=== PATIENT | female | born 1975 | race Caucasian/White ===

== ENCOUNTER 2023-04-19 15:20 | Emergency (ER) | payer SELFPAY ==
[2023-04-19 15:37] VITALS: PULSE 94; RESP 22; O2SAT 95; BMI 29.2
--- NOTE | 2023-04-19 15:44 | XRR_ITS ---
PROCEDURE INFORMATION: Exam: XR Right Ankle Exam date and time: 04/19/2023 4:00 PM Age: 48 years old Clinical indication: Injury or trauma; Fall; Blunt trauma; Ankle; Right; Additional info: Pain after fall TECHNIQUE: Imaging protocol: Radiologic exam of the right ankle. Views: 3 or more views. COMPARISON: No relevant prior studies available. FINDINGS: Bones/joints: See Soft tissues finding. Soft tissues: Mild lateral soft tissue swelling. No fracture, dislocation or subluxation. XR/XR ankle RT min 3V* [id number] IMPRESSION: No fracture. Lateral soft tissue swelling.
--- NOTE | 2023-04-19 15:51 | ED_ITS ---
Documented by User: Deyanira Roman PA-C 04/19/23 15:56 HPI - Extremity Problem General: Chief complaint: Extremity Injury, Lower Stated complaint: Right ankle injury/fall, dizzy,weakness, n/v Time Seen by Provider: 04/19/23 15:44 Source: patient and family Mode of arrival: ambulatory Limitations: no limitations History of Present Illness: 48-year-old female presents to the ER today for right foot pain, nausea, vomiting, diarrhea x12 hours. Patient reports she was getting in the hot tub last night when she slipped. She reports she felt her right foot go in different directions and hit the bottom of the pool. Patient reports since then she is been unable to bear weight on the right foot without significant pain due to it feeling unstable. Denies any prior history of a foot fracture. Patient reports a history of lupus and a stroke but no other major medical problems. Patient does smoke marijuana and reports her last marijuana use was just prior to arrival. Patient reports last night she started vomiting and has vomited all night long. She reports she is vomiting and black bile. Patient reports she has epigastric abdominal pain and it radiates across the upper abdomen. She has also had watery bowel movements since last night. Denies any fever or chills. Denies any known sick contacts. Patient has not take anything for her symptoms at this time. Review of Systems General: Reports: 10 or more systems reviewed and unremarkable except in HPI and below Physical Exam Const: COMMON NORMALS: average body habitus, patient oriented x3 and alert OTHER: pain out of proportion to exam HENMT: COMMON NORMALS: normocephalic, atraumatic, external ears normal, Normal external nose present and moist oral mucous membranes HEAD & SCALP: norm ocephalic and atraumatic NOSE: Normal external nose present EXTERNAL EAR: Yes external ears normal Lymph: LYMPHATIC: no lymphadenopathy noted Resp: COMMON NORMALS: normal respiratory effort, No retractions and clear to auscultation bilaterally AUSCULTATION: clear to auscultation bilaterally Cardio: COMMON NORMALS: regular rate, regular rhythm and No murmurs present (Cardio) RATE: regular rate RHYTHM: regular rhythm GI: OTHER: Mild epigastric tenderness noted and diffuse tenderness across the superior portion of the abdomen, negative Garvey sign. No right lower quadrant or left lower quadrant tenderness noted on exam, nondistended, normo active bowel sounds. Back/Pelvis: COMMON NORMALS: no thoracic nor lumbar tenderness and thoraco- lumbar ROM normal Extremity: NARRATIVE EXTREMITY EXAM: Patient has minimal swelling over the right lateral malleolus and navicular bone medially. There is some mild erythema over the navicular bone. Patient reports this is more swollen than normal. No other deformities noted. None tender to palpation over that area. Neuro: COMMON NORMALS: patient oriented x3 SENSORIUM/ORIENTATION: Yes alert Psych: OTHER: Patient is having difficulty making eye contact, she is in constant motion in the bed and having difficulty lying still. Skin: COMMON NORMALS: no rashes or lesions noted and no wounds GENERAL SKIN EXAM: no rashes or lesions noted Course ED course: Presents for nausea and vomiting along with right ankle pain. We will get lab work at this time in addition to an x-ray of the right foot/ankle. Patient's vitals are stable at this time. We may decide to do imaging pending lab results. We will also do a bolus of fluids with some Zofran to help with nausea. Vital Signs: Vital signs: Vital Signs Pulse Rate 76 04/19/23 17:00 Respiratory Rate 22 H 04/19/23 15:37 Blood Pressure 158/94 04/19/23 17:00 Pulse Oximetry 98 04/19/23 17:00 Oxygen Delivery Me thod Room Air 04/19/23 17:00 MDM - Extremity (Nontraumatic) Lab Data 04/19/23 15:55 04/19/23 15:55 Radiology Impressions Ankle X-Ray 04/19/23 15:44 IMPRESSION: No fracture. Lateral soft tissue swelling. Abdomen/Pelvis CT 04/19/23 16:37 IMPRESSION: No acute findings. COMMENTS: Consistent with the [employer]'s Incidental Findings Committee white paper (J Am Nolvia Radiol 2018): Any incidental renal lesion less than 1 cm or classified as too small to characterize, or any incidental cystic renal lesion characterized as simple-appearing, is likely benign. No follow-up imaging is recommended for these lesions per consensus recommendations based on imaging criteria. Laboratory Results WBC 8.8 10^3/uL (4.0-10.0) 04/19/23 15:55 RBC 5.09 10^6/uL (4.1-5.3) 04/19/23 15:55 Hgb 14.7 g/dL (11.5-15.3) 04/19/23 15:55 Hct 43.2 % (37.0-47.0) 04/19/23 15:55 MCV 84.9 fl (81-99) 04/19/23 15:55 MCH 28.9 pg (28.0-34.0) 04/19/23 15:55 MCHC 34.0 g/dL (30.0-36.0) 04/19/23 15:55 RDW 13.2 % (12.1-15.1) 04/19/23 15:55 Plt Count 199 10^3/cmm (130-400) 04/19/23 15:55 MPV 12.3 fL (7.4-10.4) H 04/19/23 15:55 Neut % (Auto) 59.4 % 04/19/23 15:55 Lymph % (Auto) 32.8 % 04/19/23 15:55 [place] % (Auto) 5.7 % 04/19/23 15:55 Eos % (Auto) 1.5 % 04/19/23 15:55 Baso % (Auto) 0.5 % 04/19/23 15:55 Neut # (Auto) 5.21 10^3/uL (1.8-7.7) 04/19/23 15:55 Lymph # (Auto) 2.9 10^3/uL (0.8-4.8) 04/19/23 15:55 [place] # (Auto) 0.5 10^3/uL (0.2-0.9) 04/19/23 15:55 Eos # (Auto) 0.1 10^3/uL (0.0-0.8) 04/19/23 15:55 Baso # (Auto) 0.0 10^3/uL (0.0-0.1) 04/19/23 15:55 Nucleated RBC % (auto) 0 % 04/19/23 15:55 Nucleated RBCs # 0.0 /100WBC 04/19/23 15:55 Sodium 138 mmol/L (136-145) 04/19/23 15:55 Potassium 3.4 mmol/L (3.5-5.1) L 04/19/23 15:55 Chloride 102 mmol/L (98-107) 04/19/23 15:55 Carbon Dioxide 24 mmol/L (22-29) 04/19/23 15:55 Anion Gap 15.4 (5-19) 04/19/23 15:55 BUN 9 mg/dL (6-20) 04/19/23 15:55 Creatinine 0.9 mg/dL (0.5-0.9) 04/19/23 15:55 GFR Calculation 66.5 mL/min (90-130) L 04/19/23 15:55 Glucose 109 mg/dL (65-115) 04/19/23 15:55 Calculated Osmolality 285 mOsm/kg (285-295) 04/19/23 15:55 Calcium 9.4 mg/dL (8.5-10.5) 04/19/23 15:55 Total Bilirubin 0.4 mg/dL (0.15-1.2) 04/19/23 15:55 AST 22 U/L (0-32) 04/19/23 15:55 ALT 16 U/L (0-33) 04/19/23 15:55 Alkaline Phosphatase 91 U/L (35-105) 04/19/23 15:55 Total Protein 7.2 g/dL (6.6-8.7) 04/19/23 15:55 Albumin 4.7 g/dL (3.5-5.2) 04/19/23 15:55 Globulin 2.5 g/dL (1.3-4.6) 04/19/23 15:55 Lipase 48 U/L (13-60) 04/19/23 15:55 Urine Color Colorless (Yellow) 04/19/23 17:34 Urine Appearance Clear (CLEAR) 04/19/23 17:34 Urine pH 6.5 (5-7) 04/19/23 17:34 Ur Specific [place] 1.005 (1.005-1.030) 04/19/23 17:34 Urine Protein Neg (Negative) 04/19/23 17:34 Urine Glucose (UA) Norm (Normal) 04/19/23 17:34 Urine Ketones Negative (Negative) 04/19/23 17:34 Urine Blood Neg (Negative) 04/19/23 17:34 Urine Nitrate Negative (Negative) 04/19/23 17:34 Urine Bilirubin Neg (Negative) 04/19/23 17:34 Urine Urobilinogen Norm mg/dL (Negative) 04/19/23 17:34 Ur Leukocyte Esterase Negative (Negative) 04/19/23 17:34 Urine Opiates Screen Negative ng/mL (Negative) 04/19/23 17:34 Ur Barbiturates Screen Negative ng/mL (Negative) 04/19/23 17:34 Ur Phencyclidine Scrn Negative ng/mL (Negative) 04/19/23 17:34 Ur Amphetamines Screen Positive ng/mL (Negative) H 04/19/23 17:34 U Benzodiazepines Scrn Negative ng/mL (Negative) 04/19/23 17:34 Urine Cocaine Screen Negative ng/mL (Negative) 04/19/23 17:34 U Marijuana (THC) Screen Positive ng/mL (Negative) H 04/19/23 17:34 Critical Care Time Critical Care Time: Critical Care Time: No Discharge Plan Discharge Patient Disposition: Home Clinical Impression: Dizziness, Ankle sprain and strain Condition: Stable Prescriptions: New meclizine 25 mg tablet 25 mg PO TID PRN (Reason: dizziness and nausea) Qty: 30 0RF Discharge Orders: Discharge ED (Routine); Ordered 04/19/23 Ordered By: Lawrence Cunningham Discharge Diet: Usual diet Discharge Activity: Increase activity as tolerated Patient Instructions: Ankle Sprain (ED), Dizziness (ED) Activity Restrictions/Additional Instructions: Home and rest. Drink plenty of water and fluids. Use meclizine to help with dizziness and nausea. Use acetaminophen and ibuprofen to help with pain of the ankle. Use elastic support and crutches until he can bear weight comfortably. Follow-up with primary care or specialist for further treatment and evaluation. Sign Out Sign Out Data: Patient Sign Out occurred on 04/19/23 at 17:03. Patient's care was discussed, and care was transferred from Deyanira Roman PA-C to Lawrence Cunningham. 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 Fwd Documented by User: [email or web address] Rodriguez 04/19/23 18:14 HPI - Extremity Problem General: Chief complaint: Extremity Injury, Lower Stated complaint: Right ankle injury/fall, dizzy,weakness, n/v Time Seen by Provider: 04/19/23 15:44 Course Vital Signs: Vital signs: Vital Signs Pulse Rate 76 04/19/23 17:00 Respiratory Rate 22 H 04/19/23 15:37 Blood Pressure 158/94 04/19/23 17:00 Pulse Oximetry 98 04/19/23 17:00 Oxygen Delivery Me thod Room Air 04/19/23 17:00 MDM - Extremity (Nontraumatic) Medical Decision Making I received this patient from Deyanira Roman, physician commercial real estate assistant. At the time of acceptance of patient patient was awaiting CT results. Patient had made complaints of dizziness with nausea vomiting diarrhea. Patient also made complaints of injury to the right ankle. X-rays of the ankle noted no fracture or swelling. Laboratories at the time showed no significant abnormalities. Outstanding labs of the urinalysis and drug screen. Differential diagnoses includes but not limited to sprain, fracture, dehydration, gastroenteritis. CT of the abdomen and pelvis noted no acute surgical abdomen. Urine drug screen w as positive for amphetamines and marijuana. Patient was recommended to use meclizine for nausea and dizziness. Patient was recommended to use a elastic bandage and crutches for support. Lab Data 04/19/23 15:55 04/19/23 15:55 Radiology Impressions Ankle X-Ray 04/19/23 15:44 IMPRESSION: No fracture. Lateral soft tissue swelling. Abdomen/Pelvis CT 04/19/23 16:37 IMPRESSION: No acute findings. COMMENTS: Consistent with the [employer]'s Incidental Findings Committee white paper (J Am Nolvia Radiol 2018): Any incidental renal lesion less than 1 cm or classified as too small to characterize, or any incidental cystic renal lesion characterized as simple-appearing, is likely benign. No follow-up imaging is recommended for these lesions per consensus recommendations based on imaging criteria. Laboratory Results WBC 8.8 10^3/uL (4.0-10.0) 04/19/23 15:55 RBC 5.09 10^6/uL (4.1-5.3) 04/19/23 15:55 Hgb 14.7 g/dL (11.5-15.3) 04/19/23 15:55 Hct 43.2 % (37.0-47.0) 04/19/23 15:55 MCV 84.9 fl (81-99) 04/19/23 15:55 MCH 28.9 pg (28.0-34.0) 04/19/23 15:55 MCHC 34.0 g/dL (30.0-36.0) 04/19/23 15:55 RDW 13.2 % (12.1-15.1) 04/19/23 15:55 Plt Count 199 10^3/cmm (130-400) 04/19/23 15:55 MPV 12.3 fL (7.4-10.4) H 04/19/23 15:55 Neut % (Auto) 59.4 % 04/19/23 15:55 Lymph % (Auto) 32.8 % 04/19/23 15:55 [place] % (Auto) 5.7 % 04/19/23 15:55 Eos % (Auto) 1.5 % 04/19/23 15:55 Baso % (Auto) 0.5 % 04/19/23 15:55 Neut # (Auto) 5.21 10^3/uL (1.8-7.7) 04/19/23 15:55 Lymph # (Auto) 2.9 10^3/uL (0.8-4.8) 04/19/23 15:55 [place] # (Auto) 0.5 10^3/uL (0.2-0.9) 04/19/23 15:55 Eos # (Auto) 0.1 10^3/uL (0.0-0.8) 04/19/23 15:55 Baso # (Auto) 0.0 10^3/uL (0.0-0.1) 04/19/23 15:55 Nucleated RBC % (auto) 0 % 04/19/23 15:55 Nucleated RBCs # 0.0 /100WBC 04/19/23 15:55 Sodium 138 mmol/L (136-145) 04/19/23 15:55 Potassium 3.4 mmol/L (3.5-5.1) L 04/19/23 15:55 Chloride 102 mmol/L (98-107) 04/19/23 15:55 Carbon Dioxide 24 mmol/L (22-29) 04/19/23 15:55 Anion Gap 15.4 (5-19) 04/19/23 15:55 BUN 9 mg/dL (6-20) 04/19/23 15:55 Creatinine 0.9 mg/dL (0.5-0.9) 04/19/23 15:55 GFR Calculation 66.5 mL/min (90-130) L 04/19/23 15:55 Glucose 109 mg/dL (65-115) 04/19/23 15:55 Calculated Osmolality 285 mOsm/kg (285-295) 04/19/23 15:55 Calcium 9.4 mg/dL (8.5-10.5) 04/19/23 15:55 Total Bilirubin 0.4 mg/dL (0.15-1.2) 04/19/23 15:55 AST 22 U/L (0-32) 04/19/23 15:55 ALT 16 U/L (0-33) 04/19/23 15:55 Alkaline Phosphatase 91 U/L (35-105) 04/19/23 15:55 Total Protein 7.2 g/dL (6.6-8.7) 04/19/23 15:55 Albumin 4.7 g/dL (3.5-5.2) 04/19/23 15:55 Globulin 2.5 g/dL (1.3-4.6) 04/19/23 15:55 Lipase 48 U/L (13-60) 04/19/23 15:55 Urine Color Colorless (Yellow) 04/19/23 17:34 Urine Appearance Clear (CLEAR) 04/19/23 17:34 Urine pH 6.5 (5-7) 04/19/23 17:34 Ur Specific [place] 1.005 (1.005-1.030) 04/19/23 17:34 Urine Protein Neg (Negative) 04/19/23 17:34 Urine Glucose (UA) Norm (Normal) 04/19/23 17:34 Urine Ketones Negative (Negative) 04/19/23 17:34 Urine Blood Neg (Negative) 04/19/23 17:34 Urine Nitrate Negative (Negative) 04/19/23 17:34 Urine Bilirubin Neg (Negative) 04/19/23 17:34 Urine Urobilinogen Norm mg/dL (Negative) 04/19/23 17:34 Ur Leukocyte Esterase Negative (Negative) 04/19/23 17:34 Urine Opiates Screen Negative ng/mL (Negative) 04/19/23 17:34 Ur Barbiturates Screen Negative ng/mL (Negative) 04/19/23 17:34 Ur Phencyclidine Scrn Negative ng/mL (Negative) 04/19/23 17:34 Ur Amphetamines Screen Positive ng/mL (Negative) H 04/19/23 17:34 U Benzodiazepines Scrn Negative ng/mL (Negative) 04/19/23 17:34 Urine Cocaine Screen Negative ng/mL (Negative) 04/19/23 17:34 U Marijuana (THC) Screen Positive ng/mL (Negative) H 04/19/23 17:34 Discharge Plan Discharge Patient Disposition: Home Clinical Impression: Dizziness, Ankle sprain and strain Condition: Stable Prescriptions: New meclizine 25 mg tablet 25 mg PO TID PRN (Reason: dizziness and nausea) Qty: 30 0RF Discharge Orders: Discharge ED (Routine); Ordered 04/19/23 Ordered By: Lawrence Cunningham Discharge Diet: Usual diet Discharge Activity: Increase activity as tolerated Patient Instructions: Ankle Sprain (ED), Dizziness (ED) Activity Restrictions/Additional Instructions: Home and rest. Drink plenty of water and fluids. Use meclizine to help with dizziness and nausea. Use acetaminophen and ibuprofen to help with pain of the ankle. Use elastic support and crutches until he can bear weight comfortably. Follow-up with primary care or specialist for further treatment and evaluation. Sign Out Sign Out Data: Patient Sign Out occurred on 04/19/23 at 17:03. Patient's care was discussed, and care was transferred from Deyanira Roman PA-C to Lawrence Cunningham. 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 Fwd Documented by User: Slim Anne DO 04/20/23 05:43 HPI - Extremity Problem General: Chief complaint: Extremity Injury, Lower Stated complaint: Right ankle injury/fall, dizzy,weakness, n/v Time Seen by Provider: 04/19/23 15:44 Course Vital Signs: Vital signs: Vital Signs Pulse Rate 76 04/19/23 17:00 Respiratory Rate 22 H 04/19/23 15:37 Blood Pressure 158/94 04/19/23 17:00 Pulse Oximetry 98 04/19/23 17:00 Oxygen Delivery Me thod Room Air 04/19/23 17:00 MDM - Extremity (Nontraumatic) Medical Decision Making I received this patient from Deyanira Roman, physician commercial real estate assistant. At the time of acceptance of patient patient was awaiting CT results. Patient had made complaints of dizziness with nausea vomiting diarrhea. Patient also made complaints of injury to the right ankle. X-rays of the ankle noted no fracture or swelling. Laboratories at the time showed no significant abnormalities. Outstanding labs of the urinalysis and drug screen. Differential diagnoses includes but not limited to sprain, fracture, dehydration, gastroenteritis. CT of the abdomen and pelvis noted no acute surgical abdomen. Urine drug screen was positive for amphetamines and marijuana. Patient was recommended to use meclizine for nausea and dizziness. Patient was recommended to use a elastic bandage and crutches for support. Chart reviewed. Agree with assessment and plan. Lab Data 04/19/23 15:55 04/19/23 15:55 Radiology Impressions Ankle X-Ray 04/19/23 15:44 IMPRESSION: No fracture. Lateral soft tissue swelling. Abdomen/Pelvis CT 04/19/23 16:37 IMPRESSION: No acute findings. COMMENTS: Consistent with the [employer]'s Incidental Findings Committee white paper (J Am Nolvia Radiol 2018): Any incidental renal lesion less than 1 cm or classified as too small to characterize, or any incidental cystic renal lesion characterized as simple-appearing, is likely benign. No follow-up imaging is recommended for these lesions per consensus recommendations based on imaging criteria. Laboratory Results WBC 8.8 10^3/uL (4.0-10.0) 04/19/23 15:55 RBC 5.09 10^6/uL (4.1-5.3) 04/19/23 15:55 Hgb 14.7 g/dL (11.5-15.3) 04/19/23 15:55 Hct 43.2 % (37.0-47.0) 04/19/23 15:55 MCV 84.9 fl (81-99) 04/19/23 15:55 MCH 28.9 pg (28.0-34.0) 04/19/23 15:55 MCHC 34.0 g/dL (30.0-36.0) 04/19/23 15:55 RDW 13.2 % (12.1-15.1) 04/19/23 15:55 Plt Count 199 10^3/cmm (130-400) 04/19/23 15:55 MPV 12.3 fL (7.4-10.4) H 04/19/23 15:55 Neut % (Auto) 59.4 % 04/19/23 15:55 Lymph % (Auto) 32.8 % 04/19/23 15:55 [place] % (Auto) 5.7 % 04/19/23 15:55 Eos % (Auto) 1.5 % 04/19/23 15:55 Baso % (Auto) 0.5 % 04/19/23 15:55 Neut # (Auto) 5.21 10^3/uL (1.8-7.7) 04/19/23 15:55 Lymph # (Auto) 2.9 10^3/uL (0.8-4.8) 04/19/23 15:55 [place] # (Auto) 0.5 10^3/uL (0.2-0.9) 04/19/23 15:55 Eos # (Auto) 0.1 10^3/uL (0.0-0.8) 04/19/23 15:55 Baso # (Auto) 0.0 10^3/uL (0.0-0.1) 04/19/23 15:55 Nucleated RBC % (auto) 0 % 04/19/23 15:55 Nucleated RBCs # 0.0 /100WBC 04/19/23 15:55 Sodium 138 mmol/L (136-145) 04/19/23 15:55 Potassium 3.4 mmol/L (3.5-5.1) L 04/19/23 15:55 Chloride 102 mmol/L (98-107) 04/19/23 15:55 Carbon Dioxide 24 mmol/L (22-29) 04/19/23 15:55 Anion Gap 15.4 (5-19) 04/19/23 15:55 BUN 9 mg/dL (6-20) 04/19/23 15:55 Creatinine 0.9 mg/dL (0.5-0.9) 04/19/23 15:55 GFR Calculation 66.5 mL/min (90-130) L 04/19/23 15:55 Glucose 109 mg/dL (65-115) 04/19/23 15:55 Calculated Osmolality 285 mOsm/kg (285-295) 04/19/23 15:55 Calcium 9.4 mg/dL (8.5-10.5) 04/19/23 15:55 Total Bilirubin 0.4 mg/dL (0.15-1.2) 04/19/23 15:55 AST 22 U/L (0-32) 04/19/23 15:55 ALT 16 U/L (0-33) 04/19/23 15:55 Alkaline Phosphatase 91 U/L (35-105) 04/19/23 15:55 Total Protein 7.2 g/dL (6.6-8.7) 04/19/23 15:55 Albumin 4.7 g/dL (3.5-5.2) 04/19/23 15:55 Globulin 2.5 g/dL (1.3-4.6) 04/19/23 15:55 Lipase 48 U/L (13-60) 04/19/23 15:55 Urine Color Colorless (Yellow) 04/19/23 17:34 Urine Appearance Clear (CLEAR) 04/19/23 17:34 Urine pH 6.5 (5-7) 04/19/23 17:34 Ur Specific [place] 1.005 (1.005-1.030) 04/19/23 17:34 Urine Protein Neg (Negative) 04/19/23 17:34 Urine Glucose (UA) Norm (Normal) 04/19/23 17:34 Urine Ketones Negative (Negative) 04/19/23 17:34 Urine Blood Neg (Negative) 04/19/23 17:34 Urine Nitrate Negative (Negative) 04/19/23 17:34 Urine Bilirubin Neg (Negative) 04/19/23 17:34 Urine Urobilinogen Norm mg/dL (Negative) 04/19/23 17:34 Ur Leukocyte Esterase Negative (Negative) 04/19/23 17:34 Urine Opiates Screen Negative ng/mL (Negative) 04/19/23 17:34 Ur Barbiturates Screen Negative ng/mL (Negative) 04/19/23 17:34 Ur Phencyclidine Scrn Negative ng/mL (Negative) 04/19/23 17:34 Ur Amphetamines Screen Positive ng/mL (Negative) H 04/19/23 17:34 U Benzodiazepines Scrn Negative ng/mL (Negative) 04/19/23 17:34 Urine Cocaine Screen Negative ng/mL (Negative) 04/19/23 17:34 U Marijuana (THC) Screen Positive ng/mL (Negative) H 04/19/23 17:34 Discharge Plan Discharge Patient Disposition: Home Clinical Impression: Dizziness, Ankle sprain and strain Condition: Stable Prescriptions: New meclizine 25 mg tablet 25 mg PO TID PRN (Reason: dizziness and nausea) Qty: 30 0RF Discharge Orders: Discharge ED (Routine); Ordered 04/19/23 Ordered By: Lawrence Cunningham Discharge Diet: Usual diet Discharge Activity: Increase activity as tolerated Patient Instructions: Ankle Sprain (ED), Dizziness (ED) Activity Restrictions/Additional Instructions: Home and rest. Drink plenty of water and fluids. Use meclizine to help with dizziness and nausea. Use acetaminophen and ibuprofen to help with pain of the ankle. Use elastic support and crutches until he can bear weight comfortably. Follow-up with primary care or specialist for further treatment and evaluation. Sign Out Sign Out Data: Patient Sign Out occurred on 04/19/23 at 17:03. Patient's care was discussed, and care was transferred from Deyanira Roman PA-C to Lawrence Cunningham. Sign Out Comment: waiting on CT results Last updated by Deyanira Roman PA-C at 04/19/23 16:44 Coding Level of Care Code ED Joinery Factory Worker for [employer]
[2023-04-19 16:00] VITALS: BP 151/97; PULSE 74; O2SAT 97
[2023-04-19 16:01] LABS: Basophils % 0.5 %; Eosinophils # 0.1 10^3/uL (0.0-0.8); Eosinophils % 1.5 %; Hematocrit 43.2 % (37.0-47.0); Hemoglobin 14.7 g/dL (11.5-15.3); Lymphocytes # 2.9 10^3/uL (0.8-4.8); Lymphocytes % 32.8 %; Mean Corpuscular Hemoglobin 28.9 pg (28.0-34.0); Mean Corpuscular Volume 84.9 fl (81-99); Mean Platelet Volume 12.3 fL (7.4-10.4); Monocytes # 0.5 10^3/uL (0.2-0.9); Monocytes % 5.7 %; Neutrophils # 5.21 10^3/uL (1.8-7.7); Neutrophils % 59.4 %; Nucleated Red Blood Cells % 0 %; Platelet Count 199 10^3/cmm (130-400); Red Blood Count 5.09 10^6/uL (4.1-5.3); Red Cell Distribution Width 13.2 % (12.1-15.1); White Blood Count 8.8 10^3/uL (4.0-10.0)
[2023-04-19] MEDS: sodium chloride 0.9% 1,000 ML 999 ML IV (16:06)
[2023-04-19] MEDS: ondansetron 2 mg/ML SDV 2 mL 4 MG IVP (16:06)
[2023-04-19 16:27] LABS: Alanine Aminotransferase 16 U/L (0-33); Albumin Level 4.7 g/dL (3.5-5.2); Alkaline Phosphatase 91 U/L (35-105); Anion Gap 15.4 (5-19); Aspartate Amino Transferase 22 U/L (0-32); Blood Urea Nitrogen 9 mg/dL (6-20); Calcium 9.4 mg/dL (8.5-10.5); Carbon Dioxide 24 mmol/L (22-29); Chloride 102 mmol/L (98-107); Globulin 2.5 g/dL (1.3-4.6); Glomerular Filtration Rate 66.5 mL/min (90-130); Glucose 109 mg/dL (65-115); Lipase 48 U/L (13-60); Osmolality Calculated 285 mOsm/kg (285-295); Potassium 3.4 mmol/L (3.5-5.1); Sodium 138 mmol/L (136-145); Total Bilirubin 0.4 mg/dL (0.15-1.2); Total Protein 7.2 g/dL (6.6-8.7)
--- NOTE | 2023-04-19 16:37 | CTR_ITS ---
PROCEDURE INFORMATION: Exam: CT Abdomen And Pelvis With Contrast Exam date and time: 04/19/2023 5:10 PM Age: 48 years old Clinical indication: Abdominal pain; Epigastric; Prior surgery; Surgery date: 6+ months; Surgery type: Tubal; Additional info: Epigastric and generalized abd pain TECHNIQUE: Imaging protocol: Computed tomography of the abdomen and pelvis with contrast. Radiation optimization: All CT scans at this facility use at least one of these dose optimization techniques: automated exposure control; mA and/or kV adjustment per patient size (includes targeted exams where dose is matched to clinical indication); or iterative reconstruction. Contrast material: OMNI 350; Contrast volume: 100 ml; Contrast route: INTRAVENOUS (IV); REPORTING DATA: Count of CT and Cardiac NM exams in prior 12 months: This patient has received 0 known CTs and 0 known cardiac nuclear medicine studies in the 12 months prior to the current study. COMPARISON: No relevant prior studies available. RADIATION DOSE METRICS: Total DLP (mGy-cm): 514.64 FINDINGS: Liver: Normal. No mass. Gallbladder and bile ducts: Normal. No calcified stones. No ductal dilation. Pancreas: Normal. No ductal dilation. Spleen: Calcified granulomas noted in the spleen. No splenomegaly. Adrenal glands: Normal. No mass. Kidneys and ureters: Right extrarenal pelvis. 1.2 cm cyst noted in the anterior cortex of the left kidney. No hydronephrosis. Stomach and bowel: Unremarkable. No obstruction. No mucosal thickening. Appendix: No evidence of appendicitis. Intraperitoneal space: Unremarkable. No free air. No significant fluid collection. Vasculature: Unremarkable. No abdominal aortic aneurysm. Lymph nodes: Unremarkable. No enlarged lymph nodes. Urinary bladder: Unremarkable as visualized. Reproductive: Hysterectomy. Bones/joints: No acute fracture. Soft tissues: Unremarkable. CT/CT abdomen pelvis w con* [id number] IMPRESSION: No acute findings. COMMENTS: Consistent with the [employer]'s Incidental Findings Committee white paper (J Am Nolvia Radiol 2018): Any incidental renal lesion less than 1 cm or classified as too small to characterize, or any incidental cystic renal lesion characterized as simple-appearing, is likely benign. No follow-up imaging is recommended for these lesions per consensus recommendations based on imaging criteria.
[2023-04-19 16:47] VITALS: BP 151/92; PULSE 72; O2SAT 97
[2023-04-19 17:00] VITALS: BP 158/94; PULSE 76; O2SAT 98
[2023-04-19] MEDS: iohexol 350 mg/mL 500 mL Btl (per mL) IV (17:14)
[2023-04-19 18:03] LABS: Amphetamines Screen Urine Positive (Negative); Barbiturates Screen Urine Negative (Negative); Benzodiazepines Screen Urine Negative (Negative); Cocaine Screen Urine Negative (Negative); Opiate Screen Urine Negative (Negative); PCP Screen Urine Negative (Negative); THC Screen Urine Positive (Negative)
[2023-04-19 18:20] LABS: Add Urine Microscopic? NO; Charge for UA Resulting for Rev
[2023-04-19 18:30] LABS: Bilirubin Urine Neg (Negative); Blood Urine Neg (Negative); Glucose Urine UA Norm (Normal); Ketones Urine Negative (Negative); Leukocyte Esterase Urine Negative (Negative); Nitrate Urine Negative (Negative); Protein Urine Neg (Negative); Specific Gravity, Urine 1.005 (1.005-1.030); Urine Appearance Clear (CLEAR); Urine Color Colorless (Yellow); Urobilinogen Urine Norm (Negative); pH Urine 6.5 (5-7)
--- NOTE | 2023-04-22 14:22 | DCPLANNER ---
passenger service manager was triggered to call patient due to no primary care physician - patient does not live in the area.
== END 2023-04-19 18:27 | disposition home or self-care (01) ==
PROVIDERS: Physician Assistant; Emergency Provider Nurse Practitioner Family
DX: S93.401A Sprain of unspecified ligament of right ankle, initial encounter (principal); S96.911A Strain of unspecified muscle and tendon at ankle and foot level, right foot, initial encounter; W01.0XXA Fall on same level from slipping, tripping and stumbling without subsequent striking against object, initial encounter; R42 Dizziness and giddiness
CPT/HCPCS: 73610; 74177; 80053; 80306; 81003; 83690; 85025; 96361; 96374; 99285; J2405; J7030; Q9967